=== PATIENT | male | born 1945 | race Caucasian/White ===

== ENCOUNTER 2019-10-09 11:09 | Inpatient (IN) ==
[2019-10-09] MEDS ORDERED: Dextrose Gel 15 GM/37.5 ML TUBE PO PRN ×2 (16:11)
[2019-10-09] MEDS ORDERED: *HR* Dextrose 50 % in Water (Syg) 50 ML SYRINGE IVP PRN (16:11)
[2019-10-09] MEDS ORDERED: D5% in Water 1,000 ML IVC PRN (16:11)
[2019-10-09] MEDS ORDERED: Insulin LISPRO 300 UNITS/3 ML VIAL SQ SCH ×2 (16:30→21:00)
[2019-10-09] MEDS ORDERED: hydrALAZINE 25 MG TABLET PO PRN (16:37)
[2019-10-09] MEDS ORDERED: lisinopriL 20 MG TABLET PO SCH (16:45)
[2019-10-09] MEDS ORDERED: carvediloL 6.25 MG TABLET PO SCH (17:00)
[2019-10-09 17:32] LABS: INR 1.1; Prothrombin Time 12.9 Seconds (9.4-12.1)
[2019-10-09] MEDS ORDERED: Warfarin perPT PO PRN (18:00)
[2019-10-09] MEDS ORDERED: *HR* Warfarin 5 MG TABLET PO ONE (18:29)
[2019-10-09] MEDS ORDERED: *HR* Enoxaparin 100 MG/ML SYRINGE SQ SCH (18:46)
[2019-10-09 19:59] VITALS: BP 176/99
[2019-10-09] MEDS ORDERED: (Omega-3 Acid Ethyl Esters [Lovaza] 1 GM) PO SCH (21:00)
[2019-10-10] MEDS ORDERED: Aspirin Enteric Coated 81 MG Tablet PO SCH (09:00)
[2019-10-10] MEDS ORDERED: amLODIPine 5 MG TABLET PO SCH (09:00)
[2019-10-10] MEDS ORDERED: Multivit/Ca/Min/Fe/FA 1 TAB TABLET PO SCH (09:00)
== END 2019-10-09 20:34 | disposition left against medical advice (07) | DRG 57 ==
LOC: INPGRE 15:03
PROVIDERS: ADMIT Family Medicine; ATTEND Family Medicine

== ENCOUNTER 2021-08-19 15:19 | Inpatient (IN) ==
[2021-08-19] MEDS ORDERED: 0.9 % Sodium Chloride 1,000 ML IVC ONE (15:38)
[2021-08-19 16:14] LABS: Calcium 8.5 mg/dL (8.6-10.3); Total Protein 6.1 g/dL (6.4-8.9)
[2021-08-19 16:16] LABS: Basophils % 0.5 %; Eosinophils # 0.2 K/mcL (0.0-0.6); Eosinophils % 2.8 %; Hemoglobin 13.9 g/dL (12.9-16.9); Immature Granulocytes % 0.2 % (0-4); Lymphocytes % 12.6 %; Mean Corpuscular HGB Conc 34.8 g/dL (31.6-35.5); Mean Corpuscular Hemoglobin 32.2 pg (28.0-33.3); Mean Corpuscular Volume 92.6 fL (83.0-100.0); Mean Platelet Volume 10.3 fL (9.4-12.4); Monocytes # 0.6 K/mcL (0.0-1.3); Monocytes % 7.8 %; Neutrophils # 6.2 K/mcL (1.6-8.9); Platelet Count 171 K/mcL (140-400); Red Blood Count 4.32 M/mcL (4.19-5.50); Red Cell Distribution Width 13.9 % (11.5-14.5); Segmented Neutrophils % 76.1 %; White Blood Count 8.2 K/mcL (4.3-11.1)
[2021-08-19 16:33] LABS: Troponin I < 0.03 ng/mL (< 0.04)
[2021-08-19 17:02] LABS: Amphetamine Screen,Urine Negative ng/mL (Cutoff=1000); Barbiturate Screen,Urine Negative ng/mL (Cutoff=200); Benzodiazepines Screen,Urine Negative ng/mL (Cutoff=200); Cannabinoid Screen,Urine Negative ng/mL (Cutoff = 50); Cocaine Screen,Urine Negative ng/mL (Cutoff= 300); Opiate Screen,Urine Negative ng/mL (Cutoff=300); Phencyclidine Screen,Urine Negative ng/mL (Cutoff=25)
[2021-08-19 17:20] LABS: Bilirubin,Urine Negative (Negative); Blood,Urine Negative (Negative); Clarity,Urine Clear (Clear); Color,Urine Yellow (Yellow); Glucose,Urine (UA) Normal (Normal); Ketones,Urine Negative (Negative); Leukocyte Esterase,Urine Negative (Negative); Nitrite,Urine Negative (Negative); Protein,Urine Negative (Neg-Trace); Specific Gravity,Urine 1.025 (1.010-1.025); Urobilinogen,Urine Normal (Normal)
[2021-08-19 17:30] LABS: Alanine Aminotransferase 23 Units/L (7-52); Albumin 3.7 g/dL (3.5-5.7); Albumin/Globulin Ratio 1.5 (1.1-2.2); Alkaline Phosphatase 67 Units/L (34-104); Aspartate Amino Transferase 18 Units/L (13-39); BUN/Creatinine Ratio 16 (6-26); Bilirubin,Total 0.7 mg/dL (0.3-1.0); Blood Urea Nitrogen 21 mg/dL (8-23); Carbon Dioxide 25 mEq/L (23-29); Chloride 106 mEq/L (98-107); Globulin 2.4 g/dL (2.4-3.5); Glucose 124 mg/dL (70-105); Magnesium 1.8 mg/dL (1.6-2.6); Osmolality,Calculated 288 (280-300); Potassium 3.9 mEq/L (3.5-5.1); Sodium 137 mEq/L (136-145); eGFR For African Americans > 60 (> 60); eGFR For Non-African Americans 53 (> 60)
[2021-08-19 20:43] LABS: Activated Partial Thrombo Time 41.5 Seconds (26.0-36.0)
[2021-08-19 20:59] LABS: INR 4.5
[2021-08-19] MEDS ORDERED: Acetaminophen 325 MG TABLET PO PRN (21:53)
[2021-08-19] MEDS ORDERED: Ondansetron ODT 4 MG TAB.RAPDIS SL PRN (21:54)
[2021-08-19] MEDS ORDERED: Naloxone 0.4 MG/ML INJ IVP PRN (21:54)
[2021-08-20] MEDS: *HR* Amiodarone 200 MG TABLET PO SCH (08:45)
[2021-08-20] MEDS: carvediloL 6.25 MG TABLET PO SCH ×2 (08:45→16:06)
[2021-08-20] MEDS: amLODIPine 5 MG TABLET PO SCH (08:45)
[2021-08-20] MEDS: Folic Acid 1 MG TABLET PO SCH (08:45)
[2021-08-20] MEDS: Aspirin Enteric Coated 81 MG Tablet PO SCH (08:45)
[2021-08-20] MEDS: Cholecalciferol (D-3) 1,000 UNIT (25MCG) TABLET PO SCH (08:45)
[2021-08-20] MEDS: lisinopriL 20 MG TABLET PO SCH (08:46)
[2021-08-20] MEDS: hydrALAZINE 25 MG TABLET PO SCH ×3 (08:46→21:46)
[2021-08-20] MEDS ORDERED: Insulin NPH 100 UNIT/ML (x5UNIT) SUBQ SCH (09:00)
[2021-08-20] MEDS ORDERED: Insulin NPH 300 UNIT/3 ML per UNIT SUBQ SCH (09:00)
[2021-08-20 11:08] LABS: Hematocrit 36.8 % (37.5-50.1); Hemoglobin 13.2 g/dL (12.9-16.9); Mean Corpuscular HGB Conc 35.9 g/dL (31.6-35.5); Mean Corpuscular Hemoglobin 32.4 pg (28.0-33.3); Mean Corpuscular Volume 90.2 fL (83.0-100.0); Mean Platelet Volume 9.1 fL (9.4-12.4); Platelet Count 160 K/mcL (140-400); Red Blood Count 4.08 M/mcL (4.19-5.50); Red Cell Distribution Width 13.5 % (11.5-14.5); White Blood Count 8.5 K/mcL (4.3-11.1)
[2021-08-20 11:16] LABS: INR 4.8; Prothrombin Time 52.6 Seconds (9.4-12.1)
[2021-08-20 11:20] LABS: BUN/Creatinine Ratio 14 (6-26); Blood Urea Nitrogen 16 mg/dL (8-23); Calcium 9.4 mg/dL (8.6-10.3); Carbon Dioxide 26 mEq/L (23-29); Chloride 103 mEq/L (98-107); Glucose 143 mg/dL (70-105); Osmolality,Calculated 284 (280-300); Potassium 4.1 mEq/L (3.5-5.1); Sodium 135 mEq/L (136-145); eGFR For African Americans > 60 (> 60); eGFR For Non-African Americans > 60 (> 60)
[2021-08-20] MEDS ORDERED: *HR* Phytonadione 5 MG TABLET PO ONE (11:23)
[2021-08-20 19:40] LABS: INR 4.7; Prothrombin Time 51.3 Seconds (9.4-12.1)
[2021-08-20] MEDS: Melatonin 3 MG TABLET PO SCH (21:46)
[2021-08-21 06:01] LABS: INR 2.6; Prothrombin Time 28.4 Seconds (9.4-12.1)
[2021-08-21] MEDS: Aspirin Enteric Coated 81 MG Tablet PO SCH (07:21)
[2021-08-21] MEDS: lisinopriL 20 MG TABLET PO SCH (07:21)
[2021-08-21] MEDS: carvediloL 6.25 MG TABLET PO SCH ×2 (07:21→15:55)
[2021-08-21] MEDS: Folic Acid 1 MG TABLET PO SCH (07:21)
[2021-08-21] MEDS: hydrALAZINE 25 MG TABLET PO SCH ×3 (07:21→20:27)
[2021-08-21] MEDS: Cholecalciferol (D-3) 1,000 UNIT (25MCG) TABLET PO SCH (07:21)
[2021-08-21] MEDS: *HR* Amiodarone 200 MG TABLET PO SCH (07:21)
[2021-08-21] MEDS: amLODIPine 5 MG TABLET PO SCH (07:21)
[2021-08-21] MEDS ORDERED: Warfarin perPT PO PRN (10:40)
[2021-08-21] MEDS ORDERED: *HR* Warfarin 2.5 MG TABLET PO ONE (18:00)
[2021-08-21] MEDS: Melatonin 3 MG TABLET PO SCH (20:27)
[2021-08-21] MEDS ORDERED: QUEtiapine Fumarate 25 MG TABLET PO SCH (21:00)
[2021-08-22 09:02] LABS: INR 1.4
[2021-08-22] MEDS: lisinopriL 20 MG TABLET PO SCH (09:10)
[2021-08-22] MEDS: Cholecalciferol (D-3) 1,000 UNIT (25MCG) TABLET PO SCH (09:10)
[2021-08-22] MEDS: Aspirin Enteric Coated 81 MG Tablet PO SCH (09:11)
[2021-08-22] MEDS: hydrALAZINE 25 MG TABLET PO SCH (09:11)
[2021-08-22] MEDS: amLODIPine 5 MG TABLET PO SCH (09:11)
[2021-08-22] MEDS: Folic Acid 1 MG TABLET PO SCH (09:12)
[2021-08-22] MEDS: *HR* Amiodarone 200 MG TABLET PO SCH (09:12)
[2021-08-22] MEDS: carvediloL 6.25 MG TABLET PO SCH (09:12)
[2021-08-22 11:20] VITALS: BP 147/71; PULSE 62; RESP 18; TEMP 97.4; O2SAT 97
[2021-08-22] MEDS ORDERED: *HR* Warfarin 2.5 MG TABLET PO ONE (18:00)
== END 2021-08-22 14:15 | disposition home or self-care (01) | DRG 884 ==
LOC: INPGRE 15:19 → EMEROOGRE 15:19 → INPGRE 22:10
PROVIDERS: ADMIT Family Medicine; ATTEND Family Medicine